=== PATIENT | female | born 2005 | race Caucasian/White ===

== ENCOUNTER 2024-12-25 22:58 | Emergency (ER) | payer MEDICAID, OTHER ==
[2024-12-25 23:16] LABS: Glucose, Urine (Dipstick) Normal (Negative); Leukocyte Negative (Negative); Protein, Urine (Dipstick) Negative (Neg-Trace); Specific Gravity, Urine 1.015 (1.005-1.030)
[2024-12-25 23:29] LABS: Bacteria/HPF Rare-Few HPF (None Seen); CAUTI Indications for Culture Dysuria,urgency,freq; RBC/HPF None Seen HPF (0-3); WBC/HPF None Seen HPF (0-3)
[2024-12-25 23:30] LABS: Urine Culture Reflex No No
[2024-12-25] MEDS ORDERED: Acetaminophen 500 MG TAB ONE (23:38)
== END 2024-12-26 01:28 | disposition home or self-care (01) ==
LOC: CSHERS 22:58
DX: O20.8 Other hemorrhage in early pregnancy (principal); Z3A.09 9 weeks gestation of pregnancy
CPT/HCPCS: 76801; 76856; 81001; 87086; Q0162